=== PATIENT | female | born 1950 | race American Indian/Alaskan Native ===

== ENCOUNTER 2022-01-24 03:15 | Inpatient (IN) | payer MEDICARE ==
--- NOTE | 2022-01-24 05:19 | Emergency Department Report ---
Blank Doc - Documentation Documentation: [facility] Consult Note # Demographics Consult Type: Acute Stroke Level 1 (0-4.5 hrs) Patient Location: Emergency Room First Name: Francheska Last Name: Roberto Date of : 1950 Age: 72 Gender: Female Facility: [facility] Time of Initial Page ( Time): 01/24/2022, 04:48 Time of Return Call ( Time): 01/24/2022, 04:48 # HPI History: 72yo woman with unclear past medical history, brought in by EMS for altered mental status. Reported that she was recently in [place] on vacation. There may be some report of taking too much of her medication. # Scores Time of exam and NIHSS (): 01/24/2022, 04:57 Level of Consciousness 1a: [0] = Alert; keenly responsive LOC Questions 1b: [0] = Answers both questions correctly LOC Commands 1c: [0] = Performs both tasks correctly Best Gaze 2: [0] = Normal Visual 3: [0] = No visual loss Facial Palsy 4: [0] = Normal symmetrical movements Motor Arm Left 5a: [0] = No drift Motor Arm Right 5b: [0] = No drift Motor Leg Left 6a: [0] = No drift Motor Leg Right 6b: [0] = No drift Limb Ataxia 7: [0] = Absent Sensory 8: [0] = Normal Best Language 9: [0] = No aphasia Dysarthria 10: [0] = Normal Extinction and Inattention 11: [0] = No abnormality NIHSS Total: 0 # Data Time Head CT personally read by me (): 01/24/2022, 05:[address]: no bleed bilateral basal ganglia calcifications noted. # Assessment Impression: encephalopathy, NIHSS 0 low suspicion of stroke unclear etiology of encephalopathy at this time. # Plan Thrombolytic/Intervention: NOT IV Thrombolysis or IA Intervention candidate Thrombolytic Exclusion (< 3 hour window): NIHSS = 0 Intraarterial Exclusion: NIHSS 0 Target Blood Pressure: SBP < 160 Labs: CBC comprehensive metabolic panel lipid panel troponin TSH ua Other: If patient has any neurological deterioration please call me back immediately I have discussed my recommendations with the referring provider Additional Recommendations: metabolic/infectious/toxicology work up MRI brain wo contrast if no etiology is discovered. Disposition: admit # Logistics Telemedicine: Interactive 2 way audio and visual telecommunication technology was utilized during this visit
--- NOTE | 2022-01-24 05:52 | Emergency Department Report ---
ED Altered Mental Status HPI - General Chief Complaint: Altered Mental Status Stated Complaint: AMS PUI?: No Time Seen by Provider: 01/24/22 04:51 Source: EMS Mode of arrival: Stretcher Limitations: Altered Mental Status - History of Present Illness Initial Comments: HPI limited from perspective of patient as patient is altered upon her arrival. Per charge nurse Florentino, she is spoken to the patient's sister who was previously unable to be reached by the nursing staff. Patient sister reports the patient recently returned from a trip to [facility]. While in [facility] the patient had diarrhea and was seen at a local emergency department and received intravenous fluids. They returned back [place] way of [place] and while in [place] the patient remained there for extra time due to not feeling well. Patient's sister states that the patient became confused between 10 PM on the night of arrival up until later today. Per her report the sister states that the patient dropped several of her regular medications, all the names of these are unknown, and took several of them. -: unknown Severity: severe Consistency of Symptoms: waxing and waning Context: other Associated Symptoms: denies other symptoms ED Review of Systems ROS: Stated complaint: AMS Other details as noted in HPI Comment: All other systems reviewed and negative Constitutional: no symptoms reported Eyes: as per HPI ENT: as per HPI Respiratory: no symptoms reported Cardiovascular: as per HPI Endocrine: no symptoms reported Gastrointestinal: as per HPI Genitourinary: as per HPI Musculoskeletal: as per HPI Skin: as per HPI Neurological: confusion Psychiatric: as per HPI Hematological/Lymphatic: as per HPI ED Past Medical Hx - Past Medical History Previous Medical History?: No ED Physical Exam - General Limitations: Altered Mental Status General appearance: alert, in no apparent distress, other (Patient is speaking but she is can) - Head Head exam: Present: atraumatic, normocephalic, normal inspection - Eye Eye exam: Present: normal appearance, PERRL, EOMI Pupils: Present: normal accommodation - ENT ENT exam: Present: normal exam, normal orophraynx, mucous membranes moist, normal external ear exam - Neck Neck exam: Present: normal inspection, full ROM - Respiratory Respiratory exam: Present: normal lung sounds bilaterally - Cardiovascular Cardiovascular Exam: Present: regular rate, normal rhythm, normal heart sounds - GI/Abdominal GI/Abdominal exam: Present: soft, normal bowel sounds - Rectal Rectal exam: Present: deferred - Extremities Exam Extremities exam: Present: normal inspection, full ROM, normal capillary refill - Back Exam Back exam: Present: normal inspection, full ROM - Neurological Exam Neurological exam: Present: altered, CN II-XII intact, reflexes normal, other - Psychiatric Psychiatric exam: Present: normal affect, normal mood - Skin Skin exam: Present: warm, dry, intact, normal color - Assessment Assessment Interval: Baseline - Level of Consciousness 1a. Level of Consciousness: alert/keenly responsive - LOC Questions 1b. LOC Questions: answers both correctly - LOC Command 1c. LOC Commands: performs tasks correctly - Best Gaze 2. Best Gaze: normal - Visual 3. Visual: no visual loss - Facial Palsy 4. Facial Palsy: normal symmetrical movement - Motor Arm 5a. Motor Arm Left: no drift 5b. Motor Arm Right: no drift - Motor Leg 6a. Motor Leg Left: no drift 6b. Motor Leg Right: no drift - Limb Ataxia 7. Limb Ataxia: absent - Sensory 8. Sensory: coma/unresponsive - Best Language 9. Best Language: no aphasia - Dysarthria 10. Dysarthria: normal - Extinction and Inattention 11. Extinction/Inattention: no abnormality - Scoring Total Score: 2 Stroke Severity: Minor Stroke ED Course - Reevaluation(s) Reevaluation #1: 01/24/22 05:38am: Call received from stroke neurologist, : Images reviewed by him. Patient has no evidence of an acute stroke. He does not believe patient's her symptoms are secondary to her stroke and her likely metabolic in origin. No tPA indicated at this time - EKG Data -: EKG Interpreted by Me EKG shows normal: sinus rhythm Rate: normal When compared to previous EKG there are: no significant change - Radiology Data Radiology results: pending - Medical Decision Making 72-year-old female presents for undifferentiated altered mental status. Vital signs stable. 5:38 AM: Patient has returned from CT. Serum labs remain pending. 6 AM: Due to change in provider shift time and that the patient's work-up still remains pending, patient signed out to Dr. Breen for further management and final disposition. Critical care attestation.: If time is entered above; I have spent that time in minutes in the direct care of this critically ill patient, excluding procedure time. ED Disposition Clinical Impression: Altered mental status Disposition: 30 STILL A PATIENT Is pt being admited?: Yes Does the pt Need Aspirin: No Condition: Stable
[2022-01-24] MEDS ORDERED: SODIUM CHLORIDE 0.9% 1000 ML 1,000 ML IV ONE ×2 (06:01→09:03)
[2022-01-24 06:21] LABS: Hematocrit 33.9 % (30.3-42.9); Hemoglobin 11.3 gm/dl (10.1-14.3); Mean Corpuscular HGB Conc 33 % (30-34); Mean Corpuscular Volume 74 fl (79-97); Platelet Count 287 K/mm3 (140-440); Red Blood Count 4.59 M/mm3 (3.65-5.03); Red Cell Distribution Width 18.6 % (13.2-15.2)
[2022-01-24 06:38] LABS: Albumin 3.1 g/dL (3.9-5); Calcium 8.6 mg/dL (8.4-10.2)
[2022-01-24 08:36] LABS: Band Neutrophils # (Manual) 0.6 K/mm3; Basophils % (Manual) 0 % (0.0-1.8); Eosinophils % (Manual) 0 % (0.0-4.3); Total Cells Counted 100
[2022-01-24 08:38] LABS: Anisocytosis 1+; Poikilocytosis 1+
[2022-01-24 08:39] LABS: Burr Cells Rare; Hypochromasia 1+; Large Platelets Rare; Ovalocytes Rare; Platelet Estimate Consistent w Auto
[2022-01-24] MEDS: POTASSIUM CHLORIDE 10 MEQ 10 MEQ/100 ML BAG IV SCH ×6 (09:00→21:40)
--- NOTE | 2022-01-24 09:02 | Electrocardiograph Report ---
[facility] Test Date: 2022-01-24 Test Time: 06:25:12 Pat Name: KEVIN QUIROZ Department: Room: Gender: F Senior Manager [employer]: ALEXANDRA : 1950 Requested By: OLIVIA LOPEZ Order Number: [id number] Reading MD: Donald Guerrero Measurements Intervals [place] Rate: 92 P: SC: QRS: -40 QRSD: 104 T: 58 QT: 468 QTc: 580 Interpretive Statements Atrial fibrillation Left axis deviation non-specific st-t poor r wave progression Prolonged QT interval No previous ECG available for comparison Electronically Signed On 01-24-2022 9:01:48 EDT by Donadl Guerrero
--- NOTE | 2022-01-24 12:14 | Event Note ---
Date: 01/24/22 Patient was signed out to me by nighttime . Patient has hyponatremia and hypokalemia. Patient will be admitted to Dr. Campbell
--- NOTE | 2022-01-24 15:30 | History and Physical Report ---
History of Present Illness Date of examination: 01/24/22 Date of admission: 01/24/2022 Chief complaint: Severe weakness and diarrhea for 2 to 3 weeks History of present illness: 72-year-old female with no significant past medical history has been having diarrhea for the last 2 to 3 weeks. Patient went on a group tour along with her sister and other friends to [facility] and neighboring countries for about 10 days. Patient developed diarrhea couple times a day for the last 2 weeks. Patient was admitted in [facility] and received some IV fluids. After stabilization patient started flew back to [place] and while in the ER patient was still not feeling well patient remained there for couple days and comes back to [place] and has been here for the last 48 hours. Patient normally lives in [place]. Because of being weak and tired patient stayed with her sister for the last 48 hours. Patient continues to have diarrhea. No fever or chills. Patient is on metoprolol, Lipitor omeprazole and fexofenadine. The list of medications on her phone. Initially patient was altered sensorium in the emergency room after IV fluids patient became more alert and oriented - Past Medical History --Hypertension --Hyperlipidemia --Allergic rhinitis -- GERD -Surgical history --Breast cancer surgery -- family history HTN --social history No smoking or alcohol or marijuana Review of Systems ROS: Stated complaint: AMS Other details as noted in HPI Comment: All other systems reviewed and negative Constitutional: no symptoms reported Eyes: as per HPI ENT: as per HPI Respiratory: no symptoms reported Cardiovascular: as per HPI Endocrine: no symptoms reported Gastrointestinal: as per HPI Genitourinary: as per HPI Musculoskeletal: as per HPI Skin: as per HPI Neurological: confusion Psychiatric: as per HPI Hematological/Lymphatic: as per HPI Medications and Allergies Allergies Allergy/AdvReac Type Severity Reaction Status Date / Time acetaminophen [From Percocet] Allergy Rash Verified 01/25/22 00:31 oxycodone [From Percocet] Allergy Rash Verified 01/25/22 00:31 Exam - Constitutional Vitals: Temp Pulse Resp BP Pulse Ox 98.5 F 74 18 125/80 96 01/24/22 05:58 01/24/22 14:23 01/24/22 14:23 01/24/22 14:23 01/24/22 14:23 General appearance: Present: no acute distress, well-nourished - EENT Eyes: Present: PERRL ENT: hearing intact, clear oral mucosa, other (Dry mucous membranes) - Neck Neck: Present: supple, normal ROM - Respiratory Respiratory effort: normal Respiratory: bilateral: CTA - Cardiovascular Heart Sounds: Present: S1 & S2. Absent: rub, click - Extremities Extremities: pulses symmetrical, No edema Peripheral Pulses: within normal limits - Abdominal General gastrointestinal: Present: soft, non-tender, non-distended, normal bowel sounds Female genitourinary: Present: normal - Integumentary Integumentary: Present: clear, warm, dry - Musculoskeletal Musculoskeletal: gait normal, strength equal bilaterally - Psychiatric Psychiatric: appropriate mood/affect, intact judgment & insight - Neurologic Neurologic: CNII-XII intact, moves all extremities HEART Score - HEART Score Troponin: Troponin T 0.027 ng/mL (0.00-0.029) 01/24/22 05:43 Results - Labs CBC & Chem 7: 01/25/22 04:55 01/25/22 04:55 Labs: Laboratory Last Values WBC 18.8 K/mm3 (4.5-11.0) H 01/24/22 05:43 RBC 4.59 M/mm3 (3.65-5.03) 01/24/22 05:43 Hgb 11.3 gm/dl (10.1-14.3) 01/24/22 05:43 Hct 33.9 % (30.3-42.9) 01/24/22 05:43 MCV 74 fl (79-97) L 01/24/22 05:43 MCH 25 pg (28-32) L 01/24/22 05:43 MCHC 33 % (30-34) 01/24/22 05:43 RDW 18.6 % (13.2-15.2) H 01/24/22 05:43 Plt Count 287 K/mm3 (140-440) 01/24/22 05:43 Add Manual Diff Complete 01/24/22 05:43 Total Counted 100 01/24/22 05:43 Seg Neutrophils % Crab Picker 01/24/22 05:43 Seg Neuts % (Manual) 89.0 % (40.0-70.0) H 01/24/22 05:43 Band Neutrophils % 3.0 % 01/24/22 05:43 Lymphocytes % (Manual) 5.0 % (13.4-35.0) L 01/24/22 05:43 Reactive Lymphs % (Man) 0 % 01/24/22 05:43 Monocytes % (Manual) 3.0 % (0.0-7.3) 01/24/22 05:43 Eosinophils % (Manual) 0 % (0.0-4.3) 01/24/22 05:43 Basophils % (Manual) 0 % (0.0-1.8) 01/24/22 05:43 Metamyelocytes % 0 % 01/24/22 05:43 Myelocytes % 0 % 01/24/22 05:43 Promyelocytes % 0 % 01/24/22 05:43 Blast Cells % 0 % 01/24/22 05:43 Nucleated RBC % Not Reportable 01/24/22 05:43 Seg Neutrophils # Man 16.7 K/mm3 (1.8-7.7) H 01/24/22 05:43 Band Neutrophils # 0.6 K/mm3 01/24/22 05:43 Lymphocytes # (Manual) 0.9 K/mm3 (1.2-5.4) L 01/24/22 05:43 Abs React Lymphs (Man) 0.0 K/mm3 01/24/22 05:43 Monocytes # (Manual) 0.6 K/mm3 (0.0-0.8) 01/24/22 05:43 Eosinophils # (Manual) 0.0 K/mm3 (0.0-0.4) 01/24/22 05:43 Basophils # (Manual) 0.0 K/mm3 (0.0-0.1) 01/24/22 05:43 Metamyelocytes # 0.0 K/mm3 01/24/22 05:43 Myelocytes # 0.0 K/mm3 01/24/22 05:43 Promyelocytes # 0.0 K/mm3 01/24/22 05:43 Blast Cells # 0.0 K/mm3 01/24/22 05:43 WBC Morphology Not Reportable 01/24/22 05:43 Hypersegmented Neuts Not Reportable 01/24/22 05:43 Hyposegmented Neuts 1+ 01/24/22 05:43 Hypogranular Neuts Not Reportable 01/24/22 05:43 Smudge Cells Not Reportable 01/24/22 05:43 Toxic Granulation Not Reportable 01/24/22 05:43 Toxic Vacuolation Not Reportable 01/24/22 05:43 Dohle Bodies Not Reportable 01/24/22 05:43 Pelger-Huet Anomaly Not Reportable 01/24/22 05:43 Caroline Rods Not Reportable 01/24/22 05:43 Platelet Estimate Consistent w auto 01/24/22 05:43 Clumped Platelets Not Reportable 01/24/22 05:43 Plt Clumps, EDTA Not Reportable 01/24/22 05:43 Large Platelets Rare 01/24/22 05:43 Giant Platelets Not Reportable 01/24/22 05:43 Platelet Satelliting Not Reportable 01/24/22 05:43 Plt Morphology Comment Not Reportable 01/24/22 05:43 RBC Morphology Not Reportable 01/24/22 05:43 Dimorphic RBCs Not Reportable 01/24/22 05:43 Polychromasia Not Reportable 01/24/22 05:43 Hypochromasia 1+ 01/24/22 05:43 Poikilocytosis 1+ 01/24/22 05:43 Anisocytosis 1+ 01/24/22 05:43 Microcytosis 1+ 01/24/22 05:43 Macrocytosis Not Reportable 01/24/22 05:43 Spherocytes Not Reportable 01/24/22 05:43 Pappenheimer Bodies Not Reportable 01/24/22 05:43 Sickle Cells Not Reportable 01/24/22 05:43 Target Cells Not Reportable 01/24/22 05:43 Tear Drop Cells Not Reportable 01/24/22 05:43 Ovalocytes Rare 01/24/22 05:43 Helmet Cells Not Reportable 01/24/22 05:43 Maya-Mondovi Bodies Not Reportable 01/24/22 05:43 [place] Rings Not Reportable 01/24/22 05:43 Bari Cells Rare 01/24/22 05:43 Bite Cells Not Reportable 01/24/22 05:43 Crenated Cell Not Reportable 01/24/22 05:43 Elliptocytes Rare 01/24/22 05:43 Acanthocytes (Spur) Not Reportable 01/24/22 05:43 Rouleaux Not Reportable 01/24/22 05:43 Hemoglobin C Crystals Not Reportable 01/24/22 05:43 Schistocytes Not Reportable 01/24/22 05:43 Malaria parasites Not Reportable 01/24/22 05:43 Kemar Bodies Not Reportable 01/24/22 05:43 Hem Pathologist Commnt No 01/24/22 05:43 Sodium 104 mmol/L (137-145) L* 01/24/22 05:43 Potassium 2.5 mmol/L (3.6-5.0) L* 01/24/22 05:43 Chloride 64.3 mmol/L (98-107) L 01/24/22 05:43 Carbon Dioxide 15 mmol/L (22-30) L 01/24/22 05:43 Anion Gap 27 mmol/L 01/24/22 05:43 BUN 58 mg/dL (7-17) H 01/24/22 05:43 Creatinine 7.4 mg/dL (0.6-1.2) H 01/24/22 05:43 Estimated GFR 5 ml/min 01/24/22 05:43 BUN/Creatinine Ratio 8 % 01/24/22 05:43 Glucose 137 mg/dL (65-100) H 01/24/22 05:43 POC Glucose 91 mg/dL (70-105) 01/24/22 06:20 Calcium 8.6 mg/dL (8.4-10.2) 01/24/22 05:43 Total Bilirubin 0.70 mg/dL (0.1-1.2) 01/24/22 05:43 AST 236 units/L (5-40) H 01/24/22 05:43 ALT 102 units/L (7-56) H 01/24/22 05:43 Alkaline Phosphatase 107 units/L (35-129) 01/24/22 05:43 Troponin T 0.027 ng/mL (0.00-0.029) 01/24/22 05:43 Total Protein 7.1 g/dL (6.3-8.2) 01/24/22 05:43 Albumin 3.1 g/dL (3.9-5) L 01/24/22 05:43 Albumin/Globulin Ratio 0.8 % 01/24/22 05:43 Salicylates < 0.3 mg/dL (2.8-20.0) L 01/24/22 05:43 Acetaminophen 5.0 ug/mL (10.0-30.0) L 01/24/22 05:43 Plasma/Serum Alcohol < 0.01 % (0-0.07) 01/24/22 05:43 Short CBC 01/25/22 Range/Units 04:55 WBC 20.5 H (4.5-11.0) K/mm3 Hgb 11.0 (10.1-14.3) gm/dl Hct 33.8 (30.3-42.9) % Plt Count 335 (140-440) K/mm3 [facility] 01/25/22 04:55 Sodium 122 L D Potassium 2.9 L* Chloride 86.7 L Carbon Dioxide 14 L BUN 46 H Creatinine 3.9 H Glucose 143 H Calcium 8.9 Liver Function 01/25/22 Range/Units 04:55 Total Bilirubin 0.60 (0.1-1.2) mg/dL AST 133 H (5-40) units/L ALT 101 H (7-56) units/L Alkaline Phosphatase 103 (35-129) units/L Albumin 3.0 L (3.9-5) g/dL Short CBC 01/25/22 Range/Units 04:55 WBC 20.5 H (4.5-11.0) K/mm3 Hgb 11.0 (10.1-14.3) gm/dl Hct 33.8 (30.3-42.9) % Plt Count 335 (140-440) K/mm3 [facility] 01/25/22 04:55 Sodium 122 L D Potassium 2.9 L* Chloride 86.7 L Carbon Dioxide 14 L BUN 46 H Creatinine 3.9 H Glucose 143 H Calcium 8.9 Liver Function 01/25/22 Range/Units 04:55 Total Bilirubin 0.60 (0.1-1.2) mg/dL AST 133 H (5-40) units/L ALT 101 H (7-56) units/L Alkaline Phosphatase 103 (35-129) units/L Albumin 3.0 L (3.9-5) g/dL - Imaging and Cardiology Imaging and Cardiology: Head CT There is dense calcification within the basal ganglia. There is also extensive microvascular angiopathy without CT evidence of acute intracranial hemorrhage head CTA (No CT evidence of large vessel occlusion and minimal to endovascular treatment anticoagulation will be needed regarding emergent vascular etiology for history of for mental status Neck CTA no CT No CT evidence of right significant stenosis involving cervical carotid or vertebral arteries Assessment and Plan Advance Directives: Yes (Full code) VTE prophylaxis?: Chemical Plan of care discussed with patient/family: Yes - Patient Problems (1) Acute metabolic encephalopathy Current Visit: Yes Status: Acute Plan to address problem: Secondary to volume depletion and electrolyte abnormalities (2) Hyponatremia Current Visit: Yes Status: Acute Plan to address problem: Severe Probably secondary to diarrhea Urine and serum osmolarity SIADH unlikely IV normal saline for now 500 cc of 3% saline given over 12 hours Monitor sodium levels (3) Hypokalemia Current Visit: Yes Status: Acute Plan to address problem: Supplemented aggressively Aldactone added (4) SASKIA (acute kidney injury) Current Visit: Yes Status: Acute Plan to address problem: Possible ATN Nephrology consult requested IV fluids for now Monitor BUN/creatinine (5) Hypertension Current Visit: Yes Status: Chronic Qualifiers: Hypertension type: primary hypertension Qualified Code(s): I10 - Essential (primary) hypertension Plan to address problem: Continue metoprolol (6) Hyperlipidemia Current Visit: Yes Status: Chronic Qualifiers: Hyperlipidemia type: mixed hyperlipidemia Qualified Code(s): E78.2 - Mixed hyperlipidemia Plan to address problem: Continue statins (7) GERD (gastroesophageal reflux disease) Current Visit: Yes Status: Chronic Qualifiers: Esophagitis presence: without esophagitis Qualified Code(s): K21.9 - Gastro-esophageal reflux disease without esophagitis Plan to address problem: On PPIs (8) History of breast cancer Current Visit: Yes Status: Chronic Plan to address problem: Anastrozole (9) Diarrhea Current Visit: Yes Status: Acute Plan to address problem: Rule out C. difficile and other causes of infection leg cellulitis, Salmonella etc. because patient has also traveled ID consult IV Flagyl started (10) DVT prophylaxis Current Visit: Yes Status: Acute Plan to address problem: On heparin and GI prophylaxis (11) Advance care planning Current Visit: Yes Status: Acute Plan to address problem: Disease management conducted diagnosis prognosis discussed patient is full code care plan discussed and patient acknowledges. Care plan +30 minutes.
[2022-01-24] MEDS ORDERED: METOCLOPRAMIDE 10 MG/2 ML INJ IV PRN (16:00)
[2022-01-24] MEDS ORDERED: D5W/0.9% NACL 1,000 ML IV SCH (16:00)
[2022-01-24] MEDS ORDERED: ACETAMINOPHEN 325 MG TAB PO PRN (16:00)
[2022-01-24] MEDS ORDERED: ONDANSETRON 4 MG/2 ML INJ IV PRN (16:30)
[2022-01-24] MEDS ORDERED: oxyCODONE /ACETAMINOPHEN 5-325MG TAB PO PRN (16:30)
[2022-01-24] MEDS ORDERED: SODIUM CHLORIDE 3% 500 ML IV ONE (16:30)
[2022-01-24] MEDS ORDERED: SODIUM CHLORIDE 0.9% 500 ML 500 ML ONE (17:12)
[2022-01-24] MEDS: HEPARIN 5,000 UNIT/1 ML VIAL SUB-Q SCH (17:52)
--- NOTE | 2022-01-24 17:57 | Cat Scan Report ---
CT angio neck INDICATION / CLINICAL INFORMATION: 72 years Female; altered mental status. TECHNIQUE: Thin cut axial images obtained through the head during IV bolus contrast administration. S agittal, coronal, and 3 plane MIP reconstructions performed by the technologist. NASCET type criteria used evaluate stenoses. All CT scans at this location are performed using CT dose reduction for ALAR A by means of automated exposure control. COMPARISON: None available. FINDINGS: CAROTID ARTERIES: The motion and beam hardening degrade the image quality. There is somewhat linear s ignal projected at the left carotid bifurcation which appears to be related to the degree of motion t jacqueline may represent incidental developmental carotid web. There is no significant stenosis involving cervical carotid arteries by NASCET criteria. VERTEBRAL ARTERIES: The vertebral arteries also demonstrate appropriate caliber without significant f ocal stenosis. ARCH: There is developmental common origin of the brachiocephalic and left common carotid arteries. T here is no significant stenosis of the origins of the arch vessels. ADDITIONAL FINDINGS: The patient is status post thyroidectomy with multiple surgical clips within the postoperative bed. IMPRESSION: There is no CTA evidence of significant stenosis involving cervical carotid or vertebral arteries by NASCET criteria. Signer Name: Jean Honeycutt MD Signed: 01/24/2022 5:52 PM Workstation Name: [id number]
--- NOTE | 2022-01-24 17:57 | Cat Scan Report ---
CT head/brain wo con INDICATION / CLINICAL INFORMATION: 72 years Female; altered mental status. TECHNIQUE: Routine CT head without contrast. All CT scans at this location are performed using CT dos e reduction for ALARA by means of automated exposure control. COMPARISON: None. FINDINGS: BRAIN / INTRACRANIAL CONTENTS: There is dense calcification within the basal ganglia bilaterally whic h may be seen in endocrinological basis or related to Fahr's disease. There is otherwise extensive ce rebral white matter disease most consistent with microvascular angiopathy at. The motion degrades tomer ge quality. However, there is no clear CT evidence of acute intracranial hemorrhage or significant ma ss effect. There is mild cerebral atrophy. The ventricular system is correspondingly appropriate in size and con figuration. There is developmental cavum septum vergae. ORBITS: No significant abnormality of visualized orbits. SINUSES / MASTOIDS: No significant abnormality in the visualized paranasal sinuses or mastoid air maikel ls. CRANIOCERVICAL JUNCTION: No significant abnormality. ADDITIONAL FINDINGS: None. IMPRESSION: 1. There is dense calcification within the basal ganglia as described at. There is also extensive kristina rovascular angiopathy without CT evidence of acute intracranial hemorrhage. Signer Name: Jean Honeycutt MD Signed: 01/24/2022 5:48 PM Workstation Name: [id number]
--- NOTE | 2022-01-24 17:59 | XRay Report ---
CHEST 1 VIEW 01/24/2022 6:09 AM INDICATION / CLINICAL INFORMATION: altered mental status. COMPARISON: None available. FINDINGS: SUPPORT DEVICES: None. HEART / MEDIASTINUM: No significant abnormality. LUNGS / PLEURA: No significant pulmonary or pleural abnormality. No pneumothorax. ADDITIONAL FINDINGS: No significant additional findings. IMPRESSION: 1. No acute findings. Signer Name: Aniket Greer MD Signed: 01/24/2022 5:53 PM Workstation Name: [id number]
--- NOTE | 2022-01-24 18:05 | Cat Scan Report ---
CT angio head INDICATION / CLINICAL INFORMATION: 72 years Female; altered mental status. TECHNIQUE: Thin cut axial images obtained through the head during IV bolus contrast administration. S agittal, coronal, and 3 plane MIP reconstructions performed by the technologist. NASCET type criteria used evaluate stenoses. Automated exposure control utilized for radiation reduction purposes. COMPARISON: None available. FINDINGS: INTERNAL CAROTID ARTERIES: There is no significant stenosis involving intracranial ICAs by NASCET cri teria. VERTEBROBASILAR SYSTEM: The vertebral basilar system also demonstrate appropriate caliber without sig nificant focal narrowing CEREBRAL ARTERIES: The proximal cerebral arteries and adjacent segments appear to demonstrate appropr iate caliber without significant stenosis or evidence of large vessel occlusion. ANEURYSM: None identified. ADDITIONAL FINDINGS: Remainder of the surrounding soft tissues are grossly normal. IMPRESSION: There is no CT evidence of large vessel occlusion and minimal to endovascular treatment and correlati on would be needed regarding emergent vascular etiology for history of "altered mental status". Signer Name: Jean Honeycutt MD Signed: 01/24/2022 5:57 PM Workstation Name: [id number]
[2022-01-25] MEDS: HEPARIN 5,000 UNIT/1 ML VIAL SUB-Q SCH ×3 (01:01→23:01)
[2022-01-25 05:31] LABS: Hematocrit 33.8 % (30.3-42.9); Mean Corpuscular HGB Conc 33 % (30-34); Mean Corpuscular Volume 76 fl (79-97); Platelet Count 335 K/mm3 (140-440); Red Blood Count 4.45 M/mm3 (3.65-5.03); Red Cell Distribution Width 18.1 % (13.2-15.2)
[2022-01-25 05:41] LABS: Calcium 8.9 mg/dL (8.4-10.2)
[2022-01-25 07:52] LABS: Anisocytosis 1+; Band Neutrophils # (Manual) 0.2 K/mm3; Basophils % (Manual) 0 % (0.0-1.8); Total Cells Counted 100
[2022-01-25 07:53] LABS: Burr Cells Few; Platelet Estimate Consistent w Auto; Tear Drop Cells 1+
[2022-01-25] MEDS: POTASSIUM CHLORIDE 10 MEQ 10 MEQ/100 ML BAG IV SCH ×4 (08:05→12:35)
[2022-01-25] MEDS: POTASSIUM CHLORIDE ER 20 MEQ TAB PO SCH ×2 (09:00→12:48)
[2022-01-25] MEDS ORDERED: POTASSIUM CHLORIDE 10 MEQ 10 MEQ/100 ML BAG IV SCH (09:00)
--- NOTE | 2022-01-25 09:21 | Consultation ---
History of Present Illness - Reason for Consult Consult date: 01/25/22 hyponatremia - History of Present Illness 72-year-old female with no significant past medical history has been having diarrhea for the last 2 to 3 weeks. she was found to have SASKIA and hyponatremia and renal consult was requested Past History Past Medical History: hypertension Medications and Allergies Allergies Allergy/AdvReac Type Severity Reaction Status Date / Time acetaminophen [From Percocet] Allergy Rash Verified 01/25/22 00:31 oxycodone [From Percocet] Allergy Rash Verified 01/25/22 00:31 Active Meds: Active Medications Acetaminophen (Acetaminophen 325 Mg Tab) 650 mg PO Q4H PRN PRN Reason: Pain MILD(1-3)/Fever >100.5/[place] Desmopressin Acetate (Desmopressin 4 Mcg/Ml Vial) 1 mcg SUB-Q Q8H TIAN Heparin Sodium (Porcine) (Heparin 5,000 Unit/1 Ml Vial) 5,000 unit SUB-Q Q12HR TIAN Last Admin: 01/25/22 08:59 Dose: 5,000 unit Dextrose/Sodium Chloride (D5ns) 1,000 mls @ 100 mls/hr IV DIRECT TIAN Potassium Chloride (Kcl 10meq/100ml) 10 meq in 100 mls @ 100 mls/hr IV Q1H TIAN Stop: 01/25/22 11:29 Last Admin: 01/25/22 08:57 Dose: 100 mls/hr Dextrose (D5w) 1,000 mls @ 125 mls/hr IV DIRECT TIAN Dextrose (D5w) 1,000 mls @ 500 mls/hr IV DIRECT TIAN Metoclopramide HCl (Metoclopramide 10 Mg/2 Ml Inj) 10 mg IV Q6H PRN PRN Reason: Nausea And Vomiting Morphine Sulfate (Morphine 2 Mg/1 Ml Inj) 2 mg IV Q4H PRN PRN Reason: Pain, Moderate (4-6) Ondansetron HCl (Ondansetron 4 Mg/2 Ml Inj) 4 mg IV Q8H PRN PRN Reason: Nausea And Vomiting Oxycodone/Acetaminophen (Oxycodone /Acetaminophen 5-325mg Tab) 1 tab PO Q6H PRN PRN Reason: Pain, Moderate (4-6) Potassium Chloride (Potassium Chloride Er 20 Meq Tab) 40 meq PO Q4H TIAN Stop: 01/25/22 13:01 Last Admin: 01/25/22 09:00 Dose: 40 meq Sodium Chloride (Sodium Chloride 0.9% 10 Ml Flush Syringe) 10 ml IV BID TIAN Last Admin: 01/25/22 09:06 Dose: 10 ml Sodium Chloride (Sodium Chloride 0.9% 10 Ml Flush Syringe) 10 ml IV PRN PRN PRN Reason: LINE FLUSH Review of Systems All systems: negative (diarreha) Exam - Vital Signs Vital signs: Vital Signs Pulse Resp 99 H 36 H 01/24/22 04:59 01/24/22 04:59 - General Appearance General appearance: well-developed, well-nourished, appears stated age EENT: ATNC, PERRL Neck: Present: neck supple Respiratory: Clear to Ascultation Heart: regular, S1S2 Gastrointestinal: Present: normoactive bowel sounds, tenderness, distended Integumentary: no rash, warm and dry Neurologic: no focal deficit, no asterixis, alert and oriented x3 Results - Lab Results 01/25/22 04:55 01/25/22 09:34 Most recent lab results Calcium 8.9 mg/dL (8.4-10.2) 01/25/22 04:55 Assessment and Plan Acute renal failure secondary to prerenal azotemia Severe hyponatremia Hypokalemia Diarrhea patient was given NS and 3% saline prior to nephrology consult and sodium corrected from 104 to 122 D5W 500 cc bolus followed by 125 cc/h with DDAVP 1 MCG Q8H goal of correction is 8 mmol/l a day, will need to bolus D5W again to reverse Na to ~112 mmol/l Cr is trending down, no indication for [employer] TRAINER Na Q4H neuro checks Q4H TSH and Cortisol in AM urine and serum osm ordered strict I&O daily weight
[2022-01-25] MEDS: MORPHINE 2 MG/1 ML INJ IV PRN ×2 (10:38→18:06)
[2022-01-25] MEDS: DEXTROSE 5% IN WATER 1,000 ML IV SCH ×3 (10:46→22:40)
[2022-01-25] MEDS: DESMOPRESSIN 4 MCG/ML VIAL SUB-Q SCH ×2 (10:57→23:17)
[2022-01-25] MEDS ORDERED: DEXTROSE 5% IN WATER 500 ML IV SCH (11:00)
[2022-01-25 20:47] LABS: Calcium 8.6 mg/dL (8.4-10.2)
[2022-01-25] MEDS ORDERED: DEXTROSE 5% IN WATER 1,000 ML IV SCH (21:00)
[2022-01-26] MEDS: DEXTROSE 5% IN WATER 1,000 ML IV SCH (03:50)
[2022-01-26 05:48] LABS: Hematocrit 30.9 % (30.3-42.9); Hemoglobin 9.9 gm/dl (10.1-14.3); Mean Corpuscular HGB Conc 32 % (30-34); Mean Corpuscular Volume 75 fl (79-97); Platelet Count 360 K/mm3 (140-440); Red Blood Count 4.13 M/mm3 (3.65-5.03); Red Cell Distribution Width 18.2 % (13.2-15.2)
[2022-01-26 06:07] LABS: Calcium 8.8 mg/dL (8.4-10.2)
[2022-01-26] MEDS: DESMOPRESSIN 4 MCG/ML VIAL SUB-Q SCH (06:30)
[2022-01-26 08:21] LABS: Basophils % (Manual) 0 % (0.0-1.8); Eosinophils % (Manual) 0 % (0.0-4.3); Hypochromasia 1+; Myelocytes # (Manual) 0.5 K/mm3; Total Cells Counted 100
[2022-01-26 08:22] LABS: Burr Cells Few; Platelet Estimate Consistent w Auto; Tear Drop Cells Few
--- NOTE | 2022-01-26 08:59 | Progress Note ---
Assessment and Plan - Patient Problems (1) Acute metabolic encephalopathy Current Visit: Yes Status: Acute Plan to address problem: Secondary to volume depletion and electrolyte abnormalities (2) Hyponatremia Current Visit: Yes Status: Acute Plan to address problem: Severe Probably secondary to diarrhea Urine and serum osmolarity SIADH unlikely IV normal saline for now 500 cc of 3% saline given over 12 hours Monitor sodium levels (3) Hypokalemia Current Visit: Yes Status: Acute Plan to address problem: Supplemented aggressively Aldactone added (4) SASKIA (acute kidney injury) Current Visit: Yes Status: Acute Plan to address problem: Possible ATN Nephrology consult requested IV fluids for now Monitor BUN/creatinine (5) Hypertension Current Visit: Yes Status: Chronic Qualifiers: Hypertension type: primary hypertension Qualified Code(s): I10 - Essential (primary) hypertension Plan to address problem: Continue metoprolol (6) Hyperlipidemia Current Visit: Yes Status: Chronic Qualifiers: Hyperlipidemia type: mixed hyperlipidemia Qualified Code(s): E78.2 - Mixed hyperlipidemia Plan to address problem: Continue statins (7) GERD (gastroesophageal reflux disease) Current Visit: Yes Status: Chronic Qualifiers: Esophagitis presence: without esophagitis Qualified Code(s): K21.9 - Gastro-esophageal reflux disease without esophagitis Plan to address problem: On PPIs (8) History of breast cancer Current Visit: Yes Status: Chronic Plan to address problem: Anastrozole (9) Diarrhea Current Visit: Yes Status: Acute Plan to address problem: Rule out C. difficile and other causes of infection leg cellulitis, Salmonella etc. because patient has also traveled ID consult IV Flagyl started (10) DVT prophylaxis Current Visit: Yes Status: Acute Plan to address problem: On heparin and GI prophylaxis (11) Advance care planning Current Visit: Yes Status: Acute Plan to address problem: Disease management conducted diagnosis prognosis discussed patient is full code care plan discussed and patient acknowledges. Care plan +30 minutes. Subjective Date of service: 01/25/22 Principal diagnosis: Hyponatremia, hypokalemia, and acute kidney injury Interval history: 72-year-old female with no significant past medical history has been having diarrhea for the last 2 to 3 weeks. Patient went on a group tour along with her sister and other friends to [facility] and neighboring countries for about 10 days. Patient developed diarrhea couple times a day for the last 2 weeks. Patient was admitted in [facility] and received some IV fluids. After stabilization patient started flew back to [place] and while in the ER patient was still not feeling well patient remained there for couple days and comes back to [place] and has been here for the last 48 hours. Patient normally lives in [place]. Because of being weak and tired patient stayed with her sister for the last 48 hours. Patient continues to have diarrhea. No fever or chills. Patient is on metoprolol, Lipitor omeprazole and fexofenadine. The list of medications on her phone. Initially patient was altered sensorium in the emergency room after IV fluids patient became more alert and oriented 01/25/2022 Sodium and potassium are improved Creatinine is better Nephrology consult appreciated Objective - Constitutional Vitals: Vital Signs - 12hr 01/26/22 01/26/22 03:37 04:59 Temperature 97.9 F Pulse Rate 101 H Respiratory 20 Rate Blood Pressure 99/59 [Right] O2 Sat by Pulse 97 95 Oximetry General appearance: Present: no acute distress, well-nourished - EENT Eyes: PERRL, EOM intact ENT: hearing intact, clear oral mucosa Ears: bilateral: normal - Neck Details: 78 Neck: supple, normal ROM - Respiratory Respiratory effort: normal Respiratory: bilateral: CTA - Breasts Breasts: normal - Cardiovascular Rhythm: regular Heart Sounds: Present: S1 & S2. Absent: gallop, rub Extremities: pulses intact, No edema, normal color, Full ROM - Gastrointestinal General gastrointestinal: Present: soft, non-tender, non-distended, normal bowel sounds - Genitourinary Female genitourinary: normal - Integumentary Integumentary: clear, warm, dry - Musculoskeletal Musculoskeletal: 1, strength equal bilaterally - Neurologic Neurologic: moves all extremities - Psychiatric Psychiatric: memory intact, appropriate mood/affect, intact judgment & insight - Labs CBC & Chem 7: 01/26/22 05:10 01/26/22 05:10 Labs: Abnormal lab results 01/25/22 01/25/22 01/25/22 Range/Units 09:34 16:43 17:24 WBC (4.5-11.0) K/mm3 Hgb (10.1-14.3) gm/dl MCV (79-97) fl MCH (28-32) pg RDW (13.2-15.2) % Seg Neuts % (Manual) (40.0-70.0) % Lymphocytes % (Manual) (13.4-35.0) % Seg Neutrophils # Man (1.8-7.7) K/mm3 Monocytes # (Manual) (0.0-0.8) K/mm3 Sodium 123 L 124 L (137-145) mmol/L Chloride (98-107) mmol/L Carbon Dioxide (22-30) mmol/L BUN (7-17) mg/dL Creatinine (0.6-1.2) mg/dL Glucose (65-100) mg/dL POC Glucose 220 H (70-105) mg/dL AST (5-40) units/L ALT (7-56) units/L Albumin (3.9-5) g/dL 01/25/22 01/25/22 01/26/22 Range/Units 20:10 20:12 00:34 WBC (4.5-11.0) K/mm3 Hgb (10.1-14.3) gm/dl MCV (79-97) fl MCH (28-32) pg RDW (13.2-15.2) % Seg Neuts % (Manual) (40.0-70.0) % Lymphocytes % (Manual) (13.4-35.0) % Seg Neutrophils # Man (1.8-7.7) K/mm3 Monocytes # (Manual) (0.0-0.8) K/mm3 Sodium 118 L* 122 L (137-145) mmol/L Chloride 89.1 L (98-107) mmol/L Carbon Dioxide 16 L (22-30) mmol/L BUN 34 H (7-17) mg/dL Creatinine 2.4 H (0.6-1.2) mg/dL Glucose 210 H (65-100) mg/dL POC Glucose 216 H (70-105) mg/dL AST (5-40) units/L ALT (7-56) units/L Albumin (3.9-5) g/dL 01/26/22 01/26/22 01/26/22 Range/Units 05:10 05:10 07:45 WBC 24.2 H (4.5-11.0) K/mm3 Hgb 9.9 L (10.1-14.3) gm/dl MCV 75 L (79-97) fl MCH 24 L (28-32) pg RDW 18.2 H (13.2-15.2) % Seg Neuts % (Manual) 84.0 H (40.0-70.0) % Lymphocytes % (Manual) 7.0 L (13.4-35.0) % Seg Neutrophils # Man 20.3 H (1.8-7.7) K/mm3 Monocytes # (Manual) 1.0 H (0.0-0.8) K/mm3 Sodium 121 L (137-145) mmol/L Chloride 89.6 L (98-107) mmol/L Carbon Dioxide 15 L (22-30) mmol/L BUN 28 H (7-17) mg/dL Creatinine 1.9 H (0.6-1.2) mg/dL Glucose 208 H (65-100) mg/dL POC Glucose 168 H (70-105) mg/dL AST 60 H (5-40) units/L ALT 78 H (7-56) units/L Albumin 3.0 L (3.9-5) g/dL HEART Score - HEART Score Troponin: Troponin T 0.027 ng/mL (0.00-0.029) 01/24/22 05:43
--- NOTE | 2022-01-26 09:24 | Progress Note ---
Assessment and Plan Acute renal failure secondary to prerenal azotemia Severe hyponatremia Hypokalemia Diarrhea patient was given NS and 3% saline prior to nephrology consult and sodium corrected from 104 to 122 was given D5W bolus and maintenance with DDAVP yesterday. Additional bolus of D5W was given in the evening due to inadeuqtae drop in Na This AM, sodium correction is ~16 mmol/l in 48 hours will stop D%W and DDAVp goal of correction is 8 mmol/l a day Cr is trending down, no indication for LOCAL GOVERNMENT LEGISLATOR Na Q4H neuro checks Q4H TSH and Cortisol in AM urine and serum osm ordered strict I&O daily weight Subjective Date of service: 01/26/22 Principal diagnosis: Hyponatremia, hypokalemia, and acute kidney injury Interval history: no overnight events Objective - Vital Signs Vital signs: Vital Signs - 12hr 01/26/22 01/26/22 03:37 04:59 Temperature 97.9 F Pulse Rate 101 H Respiratory 20 Rate Blood Pressure 99/59 [Right] O2 Sat by Pulse 97 95 Oximetry - Lab 01/26/22 05:10 01/26/22 05:10 Most recent lab results Calcium 8.8 mg/dL (8.4-10.2) 01/26/22 05:10 Medications & Allergies - Medications Allergies/Adverse Reactions: Allergies acetaminophen [From Percocet] Allergy (Verified 01/25/22 00:31) Rash oxycodone [From Percocet] Allergy (Verified 01/25/22 00:31) Rash Active Medications: Generic Name Dose Route Start Last Admin Trade Name Freq PRN Reason Stop Dose Admin Acetaminophen 650 mg 01/24/22 16:00 Acetaminophen 325 Mg Tab PO Q4H PRN Pain MILD(1-3)/Fever >100.5/[place] Heparin Sodium (Porcine) 5,000 unit 01/24/22 16:00 01/25/22 23:01 Heparin 5,000 Unit/1 Ml Vial SUB-Q 5,000 unit Q12HR TIAN Administration Metoclopramide HCl 10 mg 01/24/22 16:00 Metoclopramide 10 Mg/2 Ml Inj IV Q6H PRN Nausea And Vomiting Morphine Sulfate 2 mg 01/24/22 16:30 01/25/22 18:06 Morphine 2 Mg/1 Ml Inj IV 2 mg Q4H PRN Administration Pain, Moderate (4-6) Ondansetron HCl 4 mg 01/24/22 16:30 Ondansetron 4 Mg/2 Ml Inj IV Q8H PRN Nausea And Vomiting Oxycodone/Acetaminophen 1 tab 01/24/22 16:30 Oxycodone /Acetaminophen 5-325mg Tab PO Q6H PRN Pain, Moderate (4-6) Sodium Chloride 10 ml 01/24/22 16:00 01/25/22 23:02 Sodium Chloride 0.9% 10 Ml Flush Syringe IV 10 ml BID TIAN Administration Sodium Chloride 10 ml 01/24/22 15:42 Sodium Chloride 0.9% 10 Ml Flush Syringe IV PRN PRN LINE FLUSH
[2022-01-26] MEDS: HEPARIN 5,000 UNIT/1 ML VIAL SUB-Q SCH ×2 (09:53→21:13)
--- NOTE | 2022-01-26 15:48 | Progress Note ---
Assessment and Plan - Patient Problems (1) Acute metabolic encephalopathy Current Visit: Yes Status: Acute Plan to address problem: Secondary to volume depletion and electrolyte abnormalities Improved (2) Hyponatremia Current Visit: Yes Status: Acute Plan to address problem: Sodium at 120 Slow correction D5W and DDAVP given Monitor sodium levels (3) Hypokalemia Current Visit: Yes Status: Acute Plan to address problem: Supplemented aggressively Aldactone added (4) SASKIA (acute kidney injury) Current Visit: Yes Status: Acute Plan to address problem: Possible ATN Nephrology consult appreciated IV fluids for now Monitor BUN/creatinine Much improved with creatinine at 1.9 which is improved from 7.4 at the time of admission Consistent with ATN (5) Hypertension Current Visit: Yes Status: Chronic Qualifiers: Hypertension type: primary hypertension Qualified Code(s): I10 - Essential (primary) hypertension Plan to address problem: Continue metoprolol (6) Hyperlipidemia Current Visit: Yes Status: Chronic Qualifiers: Hyperlipidemia type: mixed hyperlipidemia Qualified Code(s): E78.2 - Mixed hyperlipidemia Plan to address problem: Continue statins (7) GERD (gastroesophageal reflux disease) Current Visit: Yes Status: Chronic Qualifiers: Esophagitis presence: without esophagitis Qualified Code(s): K21.9 - Gastro-esophageal reflux disease without esophagitis Plan to address problem: On PPIs (8) History of breast cancer Current Visit: Yes Status: Chronic Plan to address problem: Anastrozole (9) Diarrhea Current Visit: Yes Status: Acute Plan to address problem: Rule out C. difficile and other causes of infection leg cellulitis, Salmonella etc. because patient has also traveled ID consult IV Flagyl started (10) DVT prophylaxis Current Visit: Yes Status: Acute Plan to address problem: On heparin and GI prophylaxis (11) Advance care planning Current Visit: Yes Status: Acute Plan to address problem: Disease management conducted diagnosis prognosis discussed patient is full code care plan discussed and patient acknowledges. Care plan +30 minutes. Subjective Date of service: 01/26/22 Principal diagnosis: Hyponatremia, hypokalemia, and acute kidney injury Interval history: 72-year-old female with no significant past medical history has been having diarrhea for the last 2 to 3 weeks. Patient went on a group tour along with her sister and other friends to [facility] and neighboring countries for about 10 day s. Patient developed diarrhea couple times a day for the last 2 weeks. Patient was admitted in [facility] and received some IV fluids. After stabilization patient started flew back to [place] and while in the ER patient was still not feeling well patient remained there for couple days and comes back to [place] and has been here for the last 48 hours. Patient normally lives in [place]. Because of being weak and tired patient stayed with her sister for the last 48 hours. Patient continues to have diarrhea. No fever or chills. Patient is on metoprolol, Lipitor omeprazole and fexofenadine. The list of medications on her phone. Initially patient was altered sensorium in the emergency room after IV fluids patient became more alert and oriented 01/25/2022 Sodium and potassium are improved Creatinine is better Nephrology consult appreciated 01/26/2022 Hyponatremia--defer to nephrology SASKIA/ATN improving Hypokalemia improving Objective - Constitutional Vitals: Vital Signs - 12hr 01/26/22 01/26/22 01/26/22 04:59 08:00 09:55 Temperature 97.9 F Pulse Rate 101 H 94 H Pulse Rate [ From Monitor] Respiratory 20 22 Rate Blood Pressure 114/66 Blood Pressure 99/59 [Right] O2 Sat by Pulse 95 Oximetry 01/26/22 01/26/22 11:09 12:00 Temperature 97.9 F Pulse Rate 98 H Pulse Rate [ 94 H From Monitor] Respiratory 18 Rate Blood Pressure 120/69 Blood Pressure [Right] O2 Sat by Pulse 97 100 Oximetry General appearance: Present: no acute distress, well-nourished - EENT Eyes: PERRL, EOM intact ENT: hearing intact, clear oral mucosa Ears: bilateral: normal - Neck Details: 78 Neck: supple, normal ROM - Respiratory Respiratory effort: normal Respiratory: bilateral: CTA - Breasts Breasts: normal - Cardiovascular Heart rate: 78 Rhythm: regular Heart Sounds: Present: S1 & S2. Absent: gallop, rub Extremities: pulses intact, No edema, normal color, Full ROM - Gastrointestinal General gastrointestinal: Present: soft, non-tender, non-distended, normal bowel sounds - Genitourinary Female genitourinary: normal - Integumentary Integumentary: clear, warm, dry - Musculoskeletal Musculoskeletal: 1, strength equal bilaterally - Neurologic Neurologic: moves all extremities - Psychiatric Psychiatric: memory intact, appropriate mood/affect, intact judgment & insight - Labs CBC & Chem 7: 01/26/22 05:10 07/15/22 14:23 Labs: Abnormal lab results 01/25/22 01/25/22 01/25/22 Range/Units 16:43 17:24 20:10 WBC (4.5-11.0) K/mm3 Hgb (10.1-14.3) gm/dl MCV (79-97) fl MCH (28-32) pg RDW (13.2-15.2) % Seg Neuts % (Manual) (40.0-70.0) % Lymphocytes % (Manual) (13.4-35.0) % Seg Neutrophils # Man (1.8-7.7) K/mm3 Monocytes # (Manual) (0.0-0.8) K/mm3 Sodium 124 L (137-145) mmol/L Chloride (98-107) mmol/L Carbon Dioxide (22-30) mmol/L BUN (7-17) mg/dL Creatinine (0.6-1.2) mg/dL Glucose (65-100) mg/dL POC Glucose 220 H 216 H (70-105) mg/dL AST (5-40) units/L ALT (7-56) units/L Albumin (3.9-5) g/dL 01/25/22 01/26/22 01/26/22 Range/Units 20:12 00:34 05:10 WBC 24.2 H (4.5-11.0) K/mm3 Hgb 9.9 L (10.1-14.3) gm/dl MCV 75 L (79-97) fl MCH 24 L (28-32) pg RDW 18.2 H (13.2-15.2) % Seg Neuts % (Manual) 84.0 H (40.0-70.0) % Lymphocytes % (Manual) 7.0 L (13.4-35.0) % Seg Neutrophils # Man 20.3 H (1.8-7.7) K/mm3 Monocytes # (Manual) 1.0 H (0.0-0.8) K/mm3 Sodium 118 L* 122 L (137-145) mmol/L Chloride 89.1 L (98-107) mmol/L Carbon Dioxide 16 L (22-30) mmol/L BUN 34 H (7-17) mg/dL Creatinine 2.4 H (0.6-1.2) mg/dL Glucose 210 H (65-100) mg/dL POC Glucose (70-105) mg/dL AST (5-40) units/L ALT (7-56) units/L Albumin (3.9-5) g/dL 01/26/22 01/26/22 01/26/22 Range/Units 05:10 07:45 09:03 WBC (4.5-11.0) K/mm3 Hgb (10.1-14.3) gm/dl MCV (79-97) fl MCH (28-32) pg RDW (13.2-15.2) % Seg Neuts % (Manual) (40.0-70.0) % Lymphocytes % (Manual) (13.4-35.0) % Seg Neutrophils # Man (1.8-7.7) K/mm3 Monocytes # (Manual) (0.0-0.8) K/mm3 Sodium 121 L 118 L* (137-145) mmol/L Chloride 89.6 L (98-107) mmol/L Carbon Dioxide 15 L (22-30) mmol/L BUN 28 H (7-17) mg/dL Creatinine 1.9 H (0.6-1.2) mg/dL Glucose 208 H (65-100) mg/dL POC Glucose 168 H (70-105) mg/dL AST 60 H (5-40) units/L ALT 78 H (7-56) units/L Albumin 3.0 L (3.9-5) g/dL 01/26/22 01/26/22 Range/Units 11:40 14:23 WBC (4.5-11.0) K/mm3 Hgb (10.1-14.3) gm/dl MCV (79-97) fl MCH (28-32) pg RDW (13.2-15.2) % Seg Neuts % (Manual) (40.0-70.0) % Lymphocytes % (Manual) (13.4-35.0) % Seg Neutrophils # Man (1.8-7.7) K/mm3 Monocytes # (Manual) (0.0-0.8) K/mm3 Sodium 120 L (137-145) mmol/L Chloride (98-107) mmol/L Carbon Dioxide (22-30) mmol/L BUN (7-17) mg/dL Creatinine (0.6-1.2) mg/dL Glucose (65-100) mg/dL POC Glucose 146 H (70-105) mg/dL AST (5-40) units/L ALT (7-56) units/L Albumin (3.9-5) g/dL HEART Score - HEART Score Troponin: Troponin T 0.027 ng/mL (0.00-0.029) 01/24/22 05:43
[2022-01-26] MEDS: HYDROmorphone 0.5 MG/0.5 ML INJ IV PRN (16:13)
[2022-01-27 08:23] LABS: Hematocrit 29.6 % (30.3-42.9); Hemoglobin 9.8 gm/dl (10.1-14.3); Mean Corpuscular HGB Conc 33 % (30-34); Mean Corpuscular Volume 75 fl (79-97); Platelet Count 384 K/mm3 (140-440); Red Blood Count 3.94 M/mm3 (3.65-5.03); Red Cell Distribution Width 18.5 % (13.2-15.2)
[2022-01-27 08:36] LABS: Albumin 3.1 g/dL (3.9-5)
[2022-01-27 11:13] LABS: Basophils # (Auto) 0.1 K/mm3 (0.0-0.1); Eosinophils # (Auto) 0.2 K/mm3 (0.0-0.4); Eosinophils % (Auto) 1.2 % (0.0-4.3); Monocytes # (Auto) 1.3 K/mm3 (0.0-0.8); Monocytes % (Auto) 6.6 % (0.0-7.3)
[2022-01-27] MEDS: HEPARIN 5,000 UNIT/1 ML VIAL SUB-Q SCH ×2 (11:29→21:28)
[2022-01-27 11:54] LABS: Band Neutrophils # (Manual) 0.4 K/mm3; Basophils % (Manual) 0 % (0.0-1.8); Total Cells Counted 100
[2022-01-27 11:55] LABS: Burr Cells Few; Tear Drop Cells Few
[2022-01-27 11:56] LABS: Hypochromasia Few; Target Cells Few
[2022-01-27 11:57] LABS: Platelet Clumps Few; Platelet Estimate Consistent w Auto
--- NOTE | 2022-01-27 14:41 | Progress Note ---
Assessment and Plan Assessment Acute renal failure secondary to prerenal azotemia Severe hyponatremia Hypokalemia Diarrhea Plan: Renal labs reviewed. Serum creatinine 1.1 today, yesterday's was 1.9, continues to improve Recent sodium level is 124, prior was 119 S/P NS and 3% saline prior to nephrology consult and sodium corrected from 104 to 122 S/P D5W bolus and maintenance with DDAVP Goal of correction is 8 mmol/l per day Sodium checks every 4 hours Neuro checks every 4 hours AM Cortisol-pending Obtain urine and serum osmo Strict I&O's daily Obtain daily weights Plan of care reviewed by Dr. Wang Subjective Date of service: 01/27/22 Principal diagnosis: Hyponatremia, hypokalemia, and acute kidney injury Interval history: Patient seen lying in bed. Reviewed sodium levels. Objective - Vital Signs Vital signs: Vital Signs - 12hr 01/27/22 01/27/22 01/27/22 03:00 05:20 08:00 Temperature 98.0 F Pulse Rate 94 H 98 H Pulse Rate [ 94 H From Monitor] Respiratory 18 16 Rate Blood Pressure 112/62 [Right] O2 Sat by Pulse 97 97 Oximetry 01/27/22 14:22 Temperature Pulse Rate Pulse Rate [ 98 H From Monitor] Respiratory 18 Rate Blood Pressure [Right] O2 Sat by Pulse 99 Oximetry - General Appearance General appearance: well-developed, appears stated age EENT: ATNC, PERRL, hearing intact, vision intact Neck: no JVD, supple Respiratory: Present: Decreased Breath Sounds Cardiology: S1S2 Gastrointestinal: normoactive bowel sounds Integumentary: warm and dry Neurologic: alert and oriented x3 - Lab 01/27/22 06:51 01/27/22 06:51 Most recent lab results Calcium 9.0 mg/dL (8.4-10.2) 01/27/22 06:51 Medications & Allergies - Medications Allergies/Adverse Reactions: Allergies acetaminophen [From Percocet] Allergy (Verified 01/25/22 00:31) Rash oxycodone [From Percocet] Allergy (Verified 01/25/22 00:31) Rash Active Medications: Generic Name Dose Route Start Last Admin Trade Name Freq PRN Reason Stop Dose Admin Acetaminophen 650 mg 01/24/22 16:00 Acetaminophen 325 Mg Tab PO Q4H PRN Pain MILD(1-3)/Fever >100.5/[place] Heparin Sodium (Porcine) 5,000 unit 01/24/22 16:00 01/27/22 11:29 Heparin 5,000 Unit/1 Ml Vial SUB-Q 5,000 unit Q12HR TIAN Administration Hydromorphone HCl 0.5 mg 01/26/22 15:44 01/26/22 16:13 Hydromorphone 0.5 Mg/0.5 Ml Inj IV 0.5 mg Q3H PRN Administration Pain , Severe (7-10) Metoclopramide HCl 10 mg 01/24/22 16:00 Metoclopramide 10 Mg/2 Ml Inj IV Q6H PRN Nausea And Vomiting Morphine Sulfate 2 mg 01/24/22 16:30 01/25/22 18:06 Morphine 2 Mg/1 Ml Inj IV 2 mg Q4H PRN Administration Pain, Moderate (4-6) Ondansetron HCl 4 mg 01/24/22 16:30 Ondansetron 4 Mg/2 Ml Inj IV Q8H PRN Nausea And Vomiting Oxycodone/Acetaminophen 1 tab 01/24/22 16:30 Oxycodone /Acetaminophen 5-325mg Tab PO Q6H PRN Pain, Moderate (4-6) Sodium Chloride 10 ml 01/24/22 16:00 01/27/22 09:00 Sodium Chloride 0.9% 10 Ml Flush Syringe IV 10 ml BID TIAN Administration Sodium Chloride 10 ml 01/24/22 15:42 Sodium Chloride 0.9% 10 Ml Flush Syringe IV PRN PRN LINE FLUSH
--- NOTE | 2022-01-27 15:24 | Progress Note ---
Assessment and Plan - Patient Problems (1) Acute metabolic encephalopathy Current Visit: Yes Status: Acute Plan to address problem: Improved (2) Hyponatremia Current Visit: Yes Status: Acute Plan to address problem: Sodium at 122 Slow correction Monitor sodium levels (3) Hypokalemia Current Visit: Yes Status: Acute Plan to address problem: Supplemented aggressively Aldactone added (4) SASKIA (acute kidney injury) Current Visit: Yes Status: Acute Plan to address problem: Possible ATN Nephrology consult appreciated IV fluids for now Monitor BUN/creatinine Much improved with creatinine at 1.9 which is improved from 7.4 at the time of admission Consistent with ATN (5) Hypertension Current Visit: Yes Status: Chronic Qualifiers: Hypertension type: primary hypertension Qualified Code(s): I10 - Essential (primary) hypertension Plan to address problem: Continue metoprolol (6) Hyperlipidemia Current Visit: Yes Status: Chronic Qualifiers: Hyperlipidemia type: mixed hyperlipidemia Qualified Code(s): E78.2 - Mixed hyperlipidemia Plan to address problem: Continue statins (7) GERD (gastroesophageal reflux disease) Current Visit: Yes Status: Chronic Qualifiers: Esophagitis presence: without esophagitis Qualified Code(s): K21.9 - Gastro-esophageal reflux disease without esophagitis Plan to address problem: On PPIs (8) History of breast cancer Current Visit: Yes Status: Chronic Plan to address problem: Anastrozole (9) Diarrhea Current Visit: Yes Status: Acute Plan to address problem: Rule out C. difficile and other causes of infection leg cellulitis, Salmonella etc. because patient has also traveled ID consult IV Flagyl started (10) DVT prophylaxis Current Visit: Yes Status: Acute Plan to address problem: On heparin and GI prophylaxis (11) Advance care planning Current Visit: Yes Status: Acute Plan to address problem: Disease management conducted diagnosis prognosis discussed patient is full code care plan discussed and patient acknowledges. Care plan +30 minutes. Subjective Date of service: 01/27/22 Principal diagnosis: Hyponatremia, hypokalemia, and acute kidney injury Interval history: 72-year-old female with no significant past medical history has been having diarrhea for the last 2 to 3 weeks. Patient went on a group tour along with her sister and other friends to [facility] and neighboring countries for about 10 days. Patient developed diarrhea couple times a day for the last 2 weeks. Patient was admitted in [facility] and received some IV fluids. After stabilization patient started flew back to [place] and while in the ER patient was still not feeling well patient remained there for couple days and comes back to [place] and has been here for the last 48 hours. Patient normally lives in [place]. Because of being weak and tired patient stayed with her sister for the last 48 hours. Patient continues to have diarrhea. No fever or chills. Patient is on metoprolol, Lipitor omeprazole and fexofenadine. The list of medications on her phone. Initially patient was altered sensorium in the emergency room after IV fluids patient became more alert and oriented 01/25/2022 Sodium and potassium are improved Creatinine is better Nephrology consult appreciated 01/26/2022 Hyponatremia--defer to nephrology SASKIA/ATN improving Hypokalemia improving 01/27/22 Renal labs reviewed. Serum creatinine 1.1 today, yesterday's was 1.9, continues to improve Recent sodium level is 124, prior was 119 S/P NS and 3% saline prior to nephrology consult and sodium corrected from 104 to 122 S/P D5W bolus and maintenance with DDAVP Goal of correction is 8 mmol/l per day Sodium checks every 4 hours Objective - Constitutional Vitals: Vital Signs - 12hr 01/27/22 01/27/22 01/27/22 05:20 08:00 14:22 Temperature 98.0 F Pulse Rate 94 H 98 H Pulse Rate [ 98 H From Monitor] Respiratory 16 18 Rate Blood Pressure 112/62 [Right] O2 Sat by Pulse 97 99 Oximetry General appearance: Present: no acute distress, well-nourished - EENT Eyes: PERRL, EOM intact ENT: hearing intact, clear oral mucosa Ears: bilateral: normal - Neck Neck: supple, normal ROM - Respiratory Respiratory effort: normal Respiratory: bilateral: CTA - Breasts Breasts: normal - Cardiovascular Heart rate: 78 Rhythm: regular Heart Sounds: Present: S1 & S2. Absent: gallop, rub Extremities: pulses intact, No edema, normal color, Full ROM - Gastrointestinal General gastrointestinal: Present: soft, non-tender, non-distended, normal bowel sounds - Genitourinary Female genitourinary: normal - Integumentary Integumentary: clear, warm, dry - Musculoskeletal Musculoskeletal: 1, strength equal bilaterally - Neurologic Neurologic: moves all extremities - Psychiatric Psychiatric: memory intact, appropriate mood/affect, intact judgment & insight - Allied health notes Allied health notes reviewed: nursing, case management - Labs CBC & Chem 7: 01/27/22 06:51 01/27/22 06:51 Labs: Abnormal lab results 01/26/22 01/26/22 01/26/22 Range/Units 16:40 20:24 20:44 WBC (4.5-11.0) K/mm3 Hgb (10.1-14.3) gm/dl Hct (30.3-42.9) % MCV (79-97) fl MCH (28-32) pg RDW (13.2-15.2) % [place] # (Auto) (0.0-0.8) K/mm3 Seg Neutrophils % (40.0-70.0) % Seg Neuts % (Manual) (40.0-70.0) % Lymphocytes % (Manual) (13.4-35.0) % Seg Neutrophils # (1.8-7.7) K/mm3 Seg Neutrophils # Man (1.8-7.7) K/mm3 Lymphocytes # (Manual) (1.2-5.4) K/mm3 Monocytes # (Manual) (0.0-0.8) K/mm3 Sodium 119 L* (137-145) mmol/L Chloride (98-107) mmol/L Carbon Dioxide (22-30) mmol/L Glucose (65-100) mg/dL POC Glucose 168 H 170 H (70-105) mg/dL AST (5-40) units/L ALT (7-56) units/L Albumin (3.9-5) g/dL 01/27/22 01/27/22 01/27/22 Range/Units 06:51 06:51 07:21 WBC 19.8 H (4.5-11.0) K/mm3 Hgb 9.8 L (10.1-14.3) gm/dl Hct 29.6 L (30.3-42.9) % MCV 75 L (79-97) fl MCH 25 L (28-32) pg RDW 18.5 H (13.2-15.2) % [place] # (Auto) 1.3 H (0.0-0.8) K/mm3 Seg Neutrophils % 86.5 H (40.0-70.0) % Seg Neuts % (Manual) 82.0 H (40.0-70.0) % Lymphocytes % (Manual) 3.0 L (13.4-35.0) % Seg Neutrophils # 17.5 H (1.8-7.7) K/mm3 Seg Neutrophils # Man 16.2 H (1.8-7.7) K/mm3 Lymphocytes # (Manual) 0.6 L (1.2-5.4) K/mm3 Monocytes # (Manual) 1.0 H (0.0-0.8) K/mm3 Sodium 124 L (137-145) mmol/L Chloride 91.9 L (98-107) mmol/L Carbon Dioxide 18 L (22-30) mmol/L Glucose 155 H (65-100) mg/dL POC Glucose 160 H (70-105) mg/dL AST 47 H (5-40) units/L ALT 66 H (7-56) units/L Albumin 3.1 L (3.9-5) g/dL 01/27/22 Range/Units 11:45 WBC (4.5-11.0) K/mm3 Hgb (10.1-14.3) gm/dl Hct (30.3-42.9) % MCV (79-97) fl MCH (28-32) pg RDW (13.2-15.2) % [place] # (Auto) (0.0-0.8) K/mm3 Seg Neutrophils % (40.0-70.0) % Seg Neuts % (Manual) (40.0-70.0) % Lymphocytes % (Manual) (13.4-35.0) % Seg Neutrophils # (1.8-7.7) K/mm3 Seg Neutrophils # Man (1.8-7.7) K/mm3 Lymphocytes # (Manual) (1.2-5.4) K/mm3 Monocytes # (Manual) (0.0-0.8) K/mm3 Sodium (137-145) mmol/L Chloride (98-107) mmol/L Carbon Dioxide (22-30) mmol/L Glucose (65-100) mg/dL POC Glucose 129 H (70-105) mg/dL AST (5-40) units/L ALT (7-56) units/L Albumin (3.9-5) g/dL HEART Score - HEART Score Troponin: Troponin T 0.027 ng/mL (0.00-0.029) 01/24/22 05:43
[2022-01-27] MEDS: HYDROmorphone 0.5 MG/0.5 ML INJ IV PRN (21:28)
[2022-01-28 06:18] LABS: BUN/Creatinine Ratio 11; Blood Urea Nitrogen 11 mg/dL (7-17); Calcium 9.3 mg/dL (8.4-10.2); Hemolysis Index 4
[2022-01-28] MEDS: HEPARIN 5,000 UNIT/1 ML VIAL SUB-Q SCH ×2 (10:09→21:25)
--- NOTE | 2022-01-28 11:04 | Progress Note ---
Assessment and Plan Assessment Acute renal failure secondary to prerenal azotemia Severe hyponatremia Hypokalemia Diarrhea Plan: Renal labs reviewed. Serum creatinine 1.0 today, yesterday's was 1.1, continues to improve Recent sodium level is 128, prior was 124 S/P NS and 3% saline prior to nephrology consult and sodium corrected from 104 to 122 S/P D5W bolus and maintenance with DDAVP Goal of correction is 8 mmol/l per day Sodium checks every 4 hours Neuro checks every 4 hours AM Cortisol-pending Urine and serum osmo-pending Strict I&O's daily Obtain daily weights Plan of care reviewed by Dr. Wang Subjective Date of service: 01/28/22 Principal diagnosis: Hyponatremia, hypokalemia, and acute kidney injury Interval history: Patient seen lying in bed. Reviewed current sodium levels and renal labs. States she is using phone to record conversation Objective - Vital Signs Vital signs: Vital Signs - 12hr 01/27/22 01/28/22 01/28/22 23:05 03:00 04:26 Temperature 98.3 F 97.9 F Pulse Rate Pulse Rate [ 98 H From Monitor] Respiratory 20 18 18 Rate Blood Pressure 135/75 106/68 O2 Sat by Pulse 99 Oximetry 01/28/22 01/28/22 07:41 07:46 Temperature 97.4 F L Pulse Rate 94 H Pulse Rate [ From Monitor] Respiratory 16 Rate Blood Pressure 115/71 O2 Sat by Pulse 100 Oximetry - General Appearance General appearance: well-developed, appears stated age EENT: ATNC, PERRL, hearing intact, vision intact Neck: no JVD, supple Respiratory: Present: Decreased Breath Sounds Cardiology: S1S2 Gastrointestinal: normoactive bowel sounds Integumentary: warm and dry Neurologic: alert and oriented x3 Musculoskeletal: other (No edema) - Lab 01/27/22 06:51 01/28/22 05:37 Most recent lab results Calcium 9.3 mg/dL (8.4-10.2) 01/28/22 05:37 Medications & Allergies - Medications Allergies/Adverse Reactions: Allergies acetaminophen [From Percocet] Allergy (Verified 01/25/22 00:31) Rash oxycodone [From Percocet] Allergy (Verified 01/25/22 00:31) Rash Active Medications: Generic Name Dose Route Start Last Admin Trade Name Freq PRN Reason Stop Dose Admin Acetaminophen 650 mg 01/24/22 16:00 Acetaminophen 325 Mg Tab PO Q4H PRN Pain MILD(1-3)/Fever >100.5/[place] Heparin Sodium (Porcine) 5,000 unit 01/24/22 16:00 01/28/22 10:09 Heparin 5,000 Unit/1 Ml Vial SUB-Q 5,000 unit Q12HR TIAN Administration Hydromorphone HCl 0.5 mg 01/26/22 15:44 01/27/22 21:28 Hydromorphone 0.5 Mg/0.5 Ml Inj IV 0.5 mg Q3H PRN Administration Pain , Severe (7-10) Metoclopramide HCl 10 mg 01/24/22 16:00 Metoclopramide 10 Mg/2 Ml Inj IV Q6H PRN Nausea And Vomiting Morphine Sulfate 2 mg 01/24/22 16:30 01/25/22 18:06 Morphine 2 Mg/1 Ml Inj IV 2 mg Q4H PRN Administration Pain, Moderate (4-6) Ondansetron HCl 4 mg 01/24/22 16:30 Ondansetron 4 Mg/2 Ml Inj IV Q8H PRN Nausea And Vomiting Oxycodone/Acetaminophen 1 tab 01/24/22 16:30 Oxycodone /Acetaminophen 5-325mg Tab PO Q6H PRN Pain, Moderate (4-6) Sodium Chloride 10 ml 01/24/22 16:00 01/28/22 10:09 Sodium Chloride 0.9% 10 Ml Flush Syringe IV 10 ml BID TIAN Administration Sodium Chloride 10 ml 01/24/22 15:42 Sodium Chloride 0.9% 10 Ml Flush Syringe IV PRN PRN LINE FLUSH
[2022-01-29 04:41] VITALS: BP 103/59
--- NOTE | 2022-01-29 06:17 | Progress Note ---
Assessment and Plan - Patient Problems (1) Acute metabolic encephalopathy Current Visit: Yes Status: Acute Plan to address problem: Improved (2) Hyponatremia Current Visit: Yes Status: Acute Plan to address problem: Sodium improved from 104 at the time of admission to 128 Patient is stable for discharge (3) Hypokalemia Current Visit: Yes Status: Acute Plan to address problem: Resolved (4) SASKIA (acute kidney injury) Current Visit: Yes Status: Acute Plan to address problem: ATN improved Creatinine at baseline Nephrology consult appreciated (5) Hypertension Current Visit: Yes Status: Chronic Qualifiers: Hypertension type: primary hypertension Qualified Code(s): I10 - Essential (primary) hypertension Plan to address problem: Continue metoprolol (6) Hyperlipidemia Current Visit: Yes Status: Chronic Qualifiers: Hyperlipidemia type: mixed hyperlipidemia Qualified Code(s): E78.2 - Mixed hyperlipidemia Plan to address problem: Continue statins (7) GERD (gastroesophageal reflux disease) Current Visit: Yes Status: Chronic Qualifiers: Esophagitis presence: without esophagitis Qualified Code(s): K21.9 - Gastro-esophageal reflux disease without esophagitis Plan to address problem: On PPIs (8) History of breast cancer Current Visit: Yes Status: Chronic Plan to address problem: Anastrozole (9) Diarrhea Current Visit: Yes Status: Acute Plan to address problem: Rule out C. difficile and other causes of infection leg cellulitis, Salmonella etc. because patient has also traveled ID consult IV Flagyl started (10) DVT prophylaxis Current Visit: Yes Status: Acute Plan to address problem: On heparin and GI prophylaxis (11) Advance care planning Current Visit: Yes Status: Acute Plan to address problem: Disease management conducted diagnosis prognosis discussed patient is full code care plan discussed and patient acknowledges. Care plan +30 minutes. (12) Discharge planning issues Current Visit: Yes Status: Acute Plan to address problem: Patient for discharge in a.m. after physical therapy evaluation and treatment Patient needs home health for wound care and physical therapy Patient has a newly developed gluteal cleft ulcer. Subjective Date of service: 01/28/22 Principal diagnosis: Hyponatremia, hypokalemia, and acute kidney injury Interval history: 72-year-old female with no significant past medical history has been having diarrhea for the last 2 to 3 weeks. Patient went on a group tour along with her sister and other friends to [facility] and neighboring countries for about 10 days. Patient developed diarrhea couple times a day for the last 2 weeks. Patient was admitted in [facility] and received some IV fluids. After stabilization patient started flew back to [place] and while in the ER patient was still not feeling well patient remained there for couple days and comes back to [place] and has been here for the last 48 hours. Patient normally lives in [place]. Because of being weak and tired patient stayed with her sister for the last 48 hours. Patient continues to have diarrhea. No fever or chills. Patient is on metoprolol, Lipitor omeprazole and fexofenadine. The list of medications on her phone. Initially patient was altered sensorium in the emergency room after IV fluids patient became more alert and oriented 01/25/2022 Sodium and potassium are improved Creatinine is better Nephrology consult appreciated 01/26/2022 Hyponatremia--defer to nephrology SASKIA/ATN improving Hypokalemia improving 01/27/22 Renal labs reviewed. Serum creatinine 1.1 today, yesterday's was 1.9, continues to improve Recent sodium level is 124, prior was 119 S/P NS and 3% saline prior to nephrology consult and sodium corrected from 104 to 122 S/P D5W bolus and maintenance with DDAVP Goal of correction is 8 mmol/l per day Sodium checks every 4 hours 01/28/2022 Creatinine at baseline today Sodium improved to 128 Patient for discharge tomorrow morning Patient is a newly developed ulcer in the gluteal cleft Dressing applied Patient to be discharged with dressing supplies--Calcium Alginate dressing and optifoam gentlelite silicone faced foam home health and PT Objective - Constitutional Vitals: Vital Signs - 12hr 01/28/22 01/28/22 01/28/22 19:51 20:00 22:00 Temperature 97.8 F 100 F H Pulse Rate 95 H 96 H Pulse Rate [ From Monitor] Respiratory 18 Rate Blood Pressure 116/70 O2 Sat by Pulse Oximetry 01/29/22 01/29/22 03:00 04:31 Temperature 97.6 F Pulse Rate 97 H Pulse Rate [ 98 H From Monitor] Respiratory 18 17 Rate Blood Pressure 103/59 O2 Sat by Pulse 100 98 Oximetry General appearance: Present: no acute distress, well-nourished - EENT Eyes: PERRL, EOM intact ENT: hearing intact, clear oral mucosa Ears: bilateral: normal - Neck Neck: supple, normal ROM - Respiratory Respiratory effort: normal Respiratory: bilateral: CTA - Breasts Breasts: normal - Cardiovascular Heart rate: 78 Rhythm: regular Heart Sounds: Present: S1 & S2. Absent: gallop, rub Extremities: pulses intact, No edema, normal color, Full ROM, abnormal (Gluteal cleft ulcer) Extremity abnormal: other (Gluteal cleft ulcer) - Gastrointestinal General gastrointestinal: Present: soft, non-tender, non-distended, normal bowel sounds - Genitourinary Female genitourinary: normal - Integumentary Integumentary: clear, warm, dry - Musculoskeletal Musculoskeletal: 1, strength equal bilaterally - Neurologic Neurologic: moves all extremities - Psychiatric Psychiatric: memory intact, appropriate mood/affect, intact judgment & insight - Labs CBC & Chem 7: 01/27/22 06:51 01/29/22 05:21 Labs: Abnormal lab results 01/28/22 01/28/22 Range/Units 05:37 19:24 Sodium 128 L (137-145) mmol/L Chloride 95.2 L (98-107) mmol/L Carbon Dioxide 19 L (22-30) mmol/L Glucose 155 H (65-100) mg/dL POC Glucose 156 H (70-105) mg/dL HEART Score - HEART Score Troponin: Troponin T 0.027 ng/mL (0.00-0.029) 01/24/22 05:43
[2022-01-29 06:32] LABS: BUN/Creatinine Ratio 12; Blood Urea Nitrogen 11 mg/dL (7-17); Calcium 9.3 mg/dL (8.4-10.2); Hemolysis Index 6
--- NOTE | 2022-01-29 09:33 | Progress Note ---
Assessment and Plan Assessment Acute renal failure secondary to prerenal azotemia, Resolved Severe hyponatremia, Resolved Hypokalemia, Resolved Diarrhea Plan: Renal labs reviewed. Serum creatinine 0.9 today, yesterday's was 1.0, ARF has resolved Recent sodium level is 133, yesterday was 128 S/P NS and 3% saline prior to nephrology consult and sodium corrected from 104 to 122 S/P D5W bolus and maintenance with DDAVP Goal of correction is 8 mmol/l per day D/C Sodium checks every 4 hours D/C Neuro checks every 4 hours AM Cortisol-pending Urine and serum osmo-pending Strict I&O's daily Obtain daily weights Can be discharged today from Nephrology standpoint to f/u with us in office in 2-4 weeks of discharge Plan of care reviewed by Dr. Wang Subjective Date of service: 01/29/22 Principal diagnosis: Hyponatremia, hypokalemia, and acute kidney injury Interval history: Patient seen lying in bed. Reviewed current sodium levels and renal labs. Objective - Vital Signs Vital signs: Vital Signs - 12hr 01/28/22 01/29/22 01/29/22 22:00 03:00 04:31 Temperature 97.6 F Pulse Rate 96 H 97 H Pulse Rate [ 98 H From Monitor] Respiratory 18 17 Rate Blood Pressure 103/59 O2 Sat by Pulse 100 98 Oximetry - General Appearance General appearance: well-developed, appears stated age EENT: ATNC, PERRL, hearing intact, vision intact Neck: no JVD, supple Respiratory: Present: Decreased Breath Sounds Cardiology: S1S2 Gastrointestinal: normoactive bowel sounds Integumentary: warm and dry Neurologic: alert and oriented x3 Musculoskeletal: other (No edema) - Lab 01/27/22 06:51 01/29/22 05:21 Most recent lab results Calcium 9.3 mg/dL (8.4-10.2) 01/29/22 05:21 Medications & Allergies - Medications Allergies/Adverse Reactions: Allergies acetaminophen [From Percocet] Allergy (Verified 01/25/22 00:31) Rash oxycodone [From Percocet] Allergy (Verified 01/25/22 00:31) Rash Home Medications: Home Medications Medication Instructions Recorded Confirmed Last Taken Type AtorvaSTATin [Lipitor] 20 mg PO QHS 01/29/22 01/29/22 Unknown History Cyclobenzaprine [Flexeril] 10 mg PO BID 01/29/22 01/29/22 Unknown History Duloxetine HCl [Drizalma Sprinkle] 60 mg PO BID 01/29/22 01/29/22 Unknown History Fexofenadine HCl [Mariah Allergy] 180 mg PO DAILY 01/29/22 01/29/22 Unknown History Levothyroxine [Synthroid] 50 mcg PO QAM 01/29/22 01/29/22 Unknown History Meloxicam [Mobic] 7.5 mg PO BID 01/29/22 01/29/22 Unknown History Methscopolamine [place] 2.5 mg PO BID 01/29/22 01/29/22 Unknown History Naproxen [Naprosyn] 500 mg PO BID 01/29/22 01/29/22 Unknown History Omeprazole 40 mg PO DAILY 01/29/22 01/29/22 Unknown History Active Medications: Generic Name Dose Route Start Last Admin Trade Name Freq PRN Reason Stop Dose Admin Acetaminophen 650 mg 01/24/22 16:00 01/28/22 14:33 Acetaminophen 325 Mg Tab PO 650 mg Q4H PRN Administration Pain MILD(1-3)/Fever >100.5/[place] Heparin Sodium (Porcine) 5,000 unit 01/24/22 16:00 01/28/22 21:25 Heparin 5,000 Unit/1 Ml Vial SUB-Q 5,000 unit Q12HR TIAN Administration Hydromorphone HCl 0.5 mg 01/26/22 15:44 01/27/22 21:28 Hydromorphone 0.5 Mg/0.5 Ml Inj IV 0.5 mg Q3H PRN Administration Pain , Severe (7-10) Metoclopramide HCl 10 mg 01/24/22 16:00 Metoclopramide 10 Mg/2 Ml Inj IV Q6H PRN Nausea And Vomiting Morphine Sulfate 2 mg 01/24/22 16:30 01/25/22 18:06 Morphine 2 Mg/1 Ml Inj IV 2 mg Q4H PRN Administration Pain, Moderate (4-6) Ondansetron HCl 4 mg 01/24/22 16:30 Ondansetron 4 Mg/2 Ml Inj IV Q8H PRN Nausea And Vomiting Oxycodone/Acetaminophen 1 tab 01/24/22 16:30 Oxycodone /Acetaminophen 5-325mg Tab PO Q6H PRN Pain, Moderate (4-6) Sodium Chloride 10 ml 01/24/22 16:00 01/28/22 21:26 Sodium Chloride 0.9% 10 Ml Flush Syringe IV 10 ml BID TIAN Administration Sodium Chloride 10 ml 01/24/22 15:42 Sodium Chloride 0.9% 10 Ml Flush Syringe IV PRN PRN LINE FLUSH
[2022-01-29] MEDS: HEPARIN 5,000 UNIT/1 ML VIAL SUB-Q SCH (11:18)
--- NOTE | 2022-01-29 12:14 | Discharge Summary ---
Providers - Providers Date of Admission: 01/24/22 15:42 Attending physician: JJ MORENO 01/24/22 15:42 Consult to Physician [CONS] Routine Comment: Consulting Provider: HILDA MEDINA Physician Instructions: Reason For Exam: SASKIA 01/29/22 08:36 Physical Therapy Evaluation and Treat [CONS] Urgent Comment: Patient for discharge today if cleared by physical Reason For Exam: Debility 01/29/22 08:37 Consult to Case Management [CONS] Routine Services Needed at Discharge: Home Health Services Other Notified:: senior case manager Comment:: Wound care and physical therapy Primary care physician: FISHER GILL NET Hospitalization Condition: Stable Disposition: 30 STILL A PATIENT Exam - Constitutional Vitals: Temp Pulse Resp BP Pulse Ox 97.6 F 97 H 17 103/59 98 01/29/22 04:31 01/29/22 04:31 01/29/22 04:31 01/29/22 04:31 01/29/22 04:31 Plan Follow up with: PRIMARY MD YOHAN [Primary Care Provider] - 7 Days
== END 2022-01-29 21:00 | disposition home health service (06) | DRG 682 ==
LOC: ED 03:15 → 4A 15:42
PROVIDERS: ADMIT Internal Medicine; ATTEND Internal Medicine
DX: N17.0 Acute kidney failure with tubular necrosis (principal); G93.41 Metabolic encephalopathy; E87.1 Hypo-osmolality and hyponatremia; E87.6 Hypokalemia; I10 Essential (primary) hypertension; K21.9 Gastro-esophageal reflux disease without esophagitis; C50.919 Malignant neoplasm of unspecified site of unspecified female breast; E78.5 Hyperlipidemia, unspecified; Z85.3 Personal history of malignant neoplasm of breast
CPT/HCPCS: 36415; 70450; 70496; 70498; 71045; 80048; 80053; 80320; 82533; 82962; 83930; 84295; 84443; 84484; 85007; 85025; 87045; 87177; 87493; 93005; G0378; J3490; G0480; J1170; J1644; J2270; J2597; J3480; J7030; J7040; J7070; Q9967